=== PATIENT | female | born 1950 | race Caucasian/White ===

== ENCOUNTER 2018-07-19 07:51 | Observation (INO) | payer MEDICARE, OTHER ==
[2018-07-18 10:14] LABS: BASOPHILS % 0.3 % (0.0-1.0); EOSINOPHILS # (AUTO) 0.1 (0.0-0.4); EOSINOPHILS % 1.8 % (0.0-6.0); HEMOGLOBIN 12.8 g/dL (12.0-16.0); LYMPHOCYTES # (AUTO) 1.3 (1.0-3.2); LYMPHOCYTES % 21.3 % (18.0-39.1); MEAN CORPUSCULAR HEMOGLOBIN 29.8 pg (28-32); MEAN CORPUSCULAR HGB CONC 32.8 g/dL (31-35); MEAN CORPUSCULAR VOLUME 90.7 fL (81-99); MONOCYTES # (AUTO) 0.4 (0.2-0.8); NEUTROPHILS # (AUTO) 4.2 (2.1-6.9); NEUTROPHILS % 70.3 % (38.7-80.0); PLATELET COUNT 222 x10e3/uL (140-360); RED CELL DISTRIBUTION WIDTH 14.3 % (11.7-14.4)
--- NOTE | 2018-07-18 10:17 | Diagnostic Imaging Report ---
EXAMINATION: PA and lateral views of the chest. COMPARISON: None CLINICAL HISTORY: Preoperative study for cervical spine surgery DISCUSSION: Lines/tubes: None. Lungs: The lungs are well inflated and clear. There is no evidence of pneumonia or pulmonary edema. Pleura: There is no pleural effusion or pneumothorax. Heart and mediastinum: The cardiomediastinal silhouette is normal. Bones and soft tissues: No acute bony abnormalities. Degenerative changes in the thoracic spine IMPRESSION: No acute cardiopulmonary abnormalities. Signed by: Dr. Brendan Argueta M.D. on 07/18/2018 10:14 AM
[2018-07-18 10:20] LABS: INR 0.9; PROTHROMBIN TIME 12.6 seconds (11.9-14.5)
[2018-07-18 10:21] LABS: PARTIAL THROMBOPLASTIN TIME 28.5 seconds (23.8-35.5)
[2018-07-18 10:31] LABS: ANION GAP 11.5 mmol/L (8-16); CALCIUM 9.7 mg/dL (8.4-10.2); CREATININE, SERUM 1.48 mg/dL (0.57-1.11); POTASSIUM 3.5 mmol/L (3.5-5.1)
[~2018-07-19] VITALS: Ht 165.1 cm; Wt 83.1 kg
[~2018-07-19 07:51] MED LIST: ACETAMINOPHEN 1000 MG/100 ML 100 ML IV ONE; ALLOPURINOL300 MG PO; ASPIRIN81 MG PO; CALCIUM 500+D1 EACH PO; CYCLOBENZAPRINE10 MG PO; FLAXSEED OIL1000 MG PO; HYDROCHLOROTHIA25 MG PO; IRON PO; LEVOTHYROXINE50 MCG PO; LIDOCAINE HCL (LTA) 4 ML SOLN ONE; METHYLDOPA250 MG PO; OMEPRAZOLE40 MG PO; POTASSIUM CHLO10 ME1 PO; TRIAMCINOLONE A15 G1 TOP
--- OUTSIDE RECORDS SUMMARY | 2018-07-19 07:53 | XMS REPORT ---
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 Allergies, Adverse Reactions, Alerts This patient has no known allergies or adverse reactions. Medications This patient has no known medications. Results Test Description Test Time Test Comments Text Results Atomic Results Result Comments CHEST 2 VIEWS 2018-07-18 10:13:00 [place] [id number] Patient Name: LEISA IBRAHIM MR #: [id number] : 1950 Age/Sex: 67/F Req #: [id number] Adm Physician: Ordered by: MARTHA ELIAS MD Report #: [id number] Location: OR Room/Bed: Procedure: [id number] DX/CHEST 2 VIEWS Exam Date: 07/18/18 Exam Time: 0950 REPORT STATUS: Signed EXAMINATION: PA and lateral views of the chest. COMPAR [place]: None CLINICAL HISTORY: Preoperative study for cervical spine surgery DISCUSSION: Lines/tubes: None. Lungs: The lungs are well inflated and clear. There is no evidence of pneumonia or pulmonary edema. Pleura: There is no pleural effusion or pneumothorax. Heart and mediastinum: The cardiomediastinal silhouette is normal. Bones and soft tissues: No acute bony abnormalities. Degenerative changes in the thoracic spine IMPRESSION: No acute cardiopulmonary abnormalities. Signed by: Dr. Maryann Cross M.D. on 07/18/2018 10:14 AM Dictated By: MARYANN CROSS MD [id number] Transcribed By: MIGUEL on 07/18/18 1014 COPY TO: MARTHA ELIAS MD
--- OUTSIDE RECORDS SUMMARY | 2018-07-19 07:53 | XMS REPORT | Clinical Summary ---
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 Active Problems Not on file Encounters Care Team Description Date Type Specialty Amarilis Gonzalez RN 11/06/2017 Telephone Hospice Services Víctor Pradhan MD UTI (urinary tract infection), uncomplicated (Primary Dx) 09/21/2017 Emergency Emergency Medicine after 07/18/2017 Social History Date Tobacco Use Types Packs/Day Years Used Never Smoker Smokeless Tobacco: Never Used Alcohol Use Drinks/Week oz/Week Comments No Sex Assigned at Date Recorded Not on file Industry Job Start Date Occupation Not on file Not on file Not on file Travel End Travel History Travel Start No recent travel history available. Last Filed Vital Signs Time Taken Vital Sign Reading 09/21/2017 10:26 AM CDT Blood Pressure 118/65 09/21/2017 10:26 AM CDT Pulse 78 09/21/2017 10:26 AM CDT Temperature 36.8 C (98.2 F) 09/21/2017 10:26 AM CDT Respiratory Rate 21 09/21/2017 12:00 PM CDT Oxygen Saturation 98% - Inhaled Oxygen - Concentration 09/21/2017 10:27 AM CDT Weight 82.6 kg (182 lb) 09/21/2017 10:27 AM CDT Height 165.1 cm (5' 5") 09/21/2017 10:27 AM CDT Body Mass Index 30.29 Plan of Treatment Health Maintenance Due Date Last Done Comments BREAST CANCER SCREENING 2000 SHINGLES VACCINES (#1) 2000 65+ PNEUMOCOCCAL VACCINE 10/27/2015 (1 of 2 - PCV13) PNEUMOCOCCAL 10/27/2015 POLYSACCHARIDE VACCINE AGE 65 AND OVER INFLUENZA VACCINE 11/08/2018 01/27/2014, 01/23/2013, 01/08/2011 COLON CANCER SCREENING 09/22/2027 09/21/2017 Procedures Comments Procedure Name Priority Date/Time Associated Diagnosis CT ABDOMEN PELVIS WO STAT 09/21/2017 CONTRAST 12:10 PM CDT URINALYSIS SCREEN AND Routine 09/21/2017 MICROSCOPY, WITH REFLEX 11:20 AM CDT TO CULTURE GRAM STAIN Routine 09/21/2017 11:20 AM CDT URINE CULTURE Routine 09/21/2017 11:20 AM CDT OCCULT BLOOD, STOOL Routine 09/21/2017 11:20 AM CDT MANUAL DIFFERENTIAL STAT 09/21/2017 11:00 AM CDT ZZESTIMATED GFR STAT 09/21/2017 11:00 AM CDT LIPASE LEVEL STAT 09/21/2017 11:00 AM CDT PARTIAL THROMBOPLASTIN STAT 09/21/2017 TIME (PTT) 11:00 AM CDT PROTHROMBIN TIME WITH INR STAT 09/21/2017 11:00 AM CDT COMPREHENSIVE METABOLIC STAT 09/21/2017 PANEL 11:00 AM CDT CBC WITH PLATELET AND STAT 09/21/2017 DIFFERENTIAL 11:00 AM CDT after 07/18/2017 Results * CT Abdomen Pelvis Wo Contrast (09/21/2017 12:10 PM CDT) Narrative Performed At EXAMINATION:CT ABDOMEN PELVIS WO CONTRAST [facility]IANT CLINICAL HISTORY:66 years Female low abd pain black stool TECHNIQUE:Multiple axial images of the abdomen and pelvis were obtained without intravenous administration of iodinated contrast. Sagittal and coronal computerized reformatted images were also obtained. The lack of intravenous contrast reduces the sensitivity of detecting solid organ disease. CT imaging was performed with iterative reconstruction techniques and/or automated exposure control to reduce radiation dose. COMPARISON:None. FINDINGS: The liver and spleen appear normal in size and homogeneous in texture. Mild coronary artery calcification is noted The adrenal glands and pancreas appear within normal limits. The gallbladder has apparently been removed. The kidneys are not obstructed. No substantial calculi are noted within the collecting system of the kidneys. The ureters are not dilated The appendix does not appear grossly abnormal. It is diminutive with some opaque material although correlation with clinical findings is needed. A few small lymph nodes adjacent to the cecum under 1 cm are present of questionable significance. There is no evidence of diverticulitis. There are minimal diverticula . The bowel demonstrates no definitive inflammatory changes although there may be slight thickening of the wall of the descending colon this is questionable and probably related represents merely underdistention. Elsewhere there are no acute findings noted. The bones demonstrate degenerative changes and degenerative disc disease in the lower lumbar spine is also noted. The uterus and ovaries appear unremarkable to the limits of visualization. IMPRESSION: 1. There is mild coronary artery calcification. 2. Questionable mild thickening the wall of the colon transverse and descending colon although this is not definitive likely artifactual due to underdistention. 3. No changes to suggest diverticulitis.. [id number] Procedure Note Interface, Radiology Results [facility] - 09/21/2017 12:56 PM CDT EXAMINATION: CT ABDOMEN PELVIS WO CONTRAST CLINICAL HISTORY:66 years Female low abd pain black stool TECHNIQUE: Multiple axial images of the abdomen and pelvis were obtained without intravenous administration of iodinated contrast. Sagittal and coronal computerized reformatted images were also obtained. The lack of intravenous contrast reduces the sensitivity of detecting solid organ disease. CT imaging was performed with iterative reconstruction techniques and/or automated exposure control to reduce radiation dose. COMPARISON: None. FINDINGS: The liver and spleen appear normal in size and homogeneous in texture. Mild coronary artery calcification is noted The adrenal glands and pancreas appear within normal limits. The gallbladder has apparently been removed. The kidneys are not obstructed. No substantial calculi are noted within the collecting system of the kidneys. The ureters are not dilated The appendix does not appear grossly abnormal. It is diminutive with some opaque material although correlation with clinical findings is needed. A few small lymph nodes adjacent to the cecum under 1 cm are present of questionable significance. There is no evidence of diverticulitis. There are minimal diverticula . The bowel demonstrates no definitive inflammatory changes although there may be slight thickening of the wall of the descending colon this is questionable and probably related represents merely underdistention. Elsewhere there are no acute findings noted. The bones demonstrate degenerative changes and degenerative disc disease in the lower lumbar spine is also noted. The uterus and ovaries appear unremarkable to the limits of visualization. IMPRESSION: 1. There is mild coronary artery calcification. 2. Questionable mild thickening the wall of the colon transverse and descending colon although this is not definitive likely artifactual due to underdistention. 3. No changes to suggest diverticulitis.. [id number] Performing Organization Address City/State/Zipcode Phone Number [facility] [address] [place] [address] * Urinalysis screen and microscopy, with reflex to culture (09/21/2017 11:20 AM CDT) Specimen site Clean catch [facility] DEPARTMENT OF PATHOLOGY AND GENOMIC MEDICINE Color, UA Yellow [facility] DEPARTMENT OF PATHOLOGY AND GENOMIC MEDICINE Appearance, UA Slightly-Cloudy [facility] DEPARTMENT OF PATHOLOGY AND GENOMIC MEDICINE Specific gravity, UA 1.006 1.001 - 1.035 [facility] DEPARTMENT OF PATHOLOGY AND GENOMIC MEDICINE pH, UA 5.0 5.0 - 8.5 [facility] DEPARTMENT OF PATHOLOGY AND GENOMIC MEDICINE Protein, UA Negative Negative [facility] DEPARTMENT OF PATHOLOGY AND GENOMIC MEDICINE Glucose, UA Negative Negative [facility] DEPARTMENT OF PATHOLOGY AND GENOMIC MEDICINE Ketones, UA Trace (A) Negative [facility] DEPARTMENT OF PATHOLOGY AND GENOMIC MEDICINE Bilirubin, UA Negative Negative [facility] DEPARTMENT OF PATHOLOGY AND GENOMIC MEDICINE Blood, UA Small (A) Negative [facility] DEPARTMENT OF PATHOLOGY AND GENOMIC MEDICINE Nitrite, UA Negative Negative [facility] DEPARTMENT OF PATHOLOGY AND GENOMIC MEDICINE Urobilinogen, UA Negative <2.0 [facility] DEPARTMENT OF PATHOLOGY AND GENOMIC MEDICINE Leukocyte esterase, UA Large (A) Negative [facility] DEPARTMENT OF PATHOLOGY AND GENOMIC MEDICINE Epithelial cells, UA Many /HPF [facility] DEPARTMENT OF PATHOLOGY AND GENOMIC MEDICINE Round epithelial cells, Many 0 - 1 /HPF [facility] DEPARTMENT [facility] PATHOLOGY AND GENOMIC MEDICINE WBC, UA 0-5 0 - 4 /HPF [facility] DEPARTMENT OF PATHOLOGY AND GENOMIC MEDICINE RBC, UA 0-5 0 - 5 /HPF [facility] DEPARTMENT OF PATHOLOGY AND GENOMIC MEDICINE Bacteria, UA Trace None seen [facility] DEPARTMENT OF PATHOLOGY AND GENOMIC MEDICINE Yeast, UA None seen [facility] DEPARTMENT OF PATHOLOGY AND GENOMIC MEDICINE Yeast with pseudohyphae, None seen [facility] PATHOLOGY AND GENOMIC MEDICINE Hyaline casts, UA 6-10 /LPF [facility] DEPARTMENT OF PATHOLOGY AND GENOMIC MEDICINE Specimen Urine Performing Organization Address City/[facility] Phone Number [facility] [address]MENT [place] [id number] [place] [address] [place] [address] PATHOLOGY AND GENOMIC MEDICINE * Occult blood, stool (09/21/2017 11:20 AM CDT) Occult blood, stool Negative for occult blood. [facility] DEPARTMENT OF Comment: PATHOLOGY AND Specimen Information GENOMIC MEDICINE Specimen Source: Stool Specimen Site: Not otherwise specified Specimen Stool - Not otherwise specified Performing Organization Address City/[facility]/Zipcode Phone Number [facility] [address]MENT [place] [id number] [place] [address] [place] [address] PATHOLOGY AND GENOMIC MEDICINE * Gram stain (09/21/2017 11:20 AM CDT) Gram stain result No WBC's [facility] DEPARTMENT OF Occasional Gram positive rods PATHOLOGY AND Comment: GENOMIC MEDICINE Specimen Information Specimen Source: Urine Specimen Site: Clean catch Specimen Urine Performing Organization Address City/[facility]/Zipcode Phone Number [facility] DEPARTMENT OF [address] [place] [id number] PATHOLOGY AND GENOMIC MEDICINE * Urine culture (09/21/2017 11:20 AM CDT) Urine culture isolate Klebsiella pneumoniae [facility] DEPARTMENT OF >10-5 cfu/ml PATHOLOGY AND The performance GENOMIC MEDICINE characteristics of this assay on this isolate were validated by the Microbiology Laboratory at [facility].This source has not been approved by the U.S. Food and Drug Administration.The results are not intended to be used as the sole means for clinical diagnosis or patient management.The Microbiology Laboratory is authorized under the clinical Laboratory Improvement Amendments of 1988 (CLIA-88) to perform high complexity testing. (A) Comment: Specimen Information Specimen Source: Urine Specimen Site: Clean catch Urine culture isolate Salmonella enteritidis [facility] DEPARTMENT OF >10-5 cfu/ml PATHOLOGY AND Serotyping performed by the [facility], [address] [place] [address] This organism has been reported to the [facility] as required, [address], [place] [address]. The performance characteristics of this assay on this isolate were validated by the Microbiology Laboratory at [facility].This source has not been approved by the .S. Food and Drug Administration.The results are not intended to be used as the sole means for clinical diagnosis or patient management.The Microbiology Laboratory is authorized under the clinical Laboratory Improvement Amendments of 1988 (CLIA-88) to perform high complexity testing. This organism has been reported to the [facility] as required, [address], [place] [address]. Identification performed by the [facility], [address] [place] [address] This Salmonella molecular serotyping assay was developed by [facility], and its performance characteristics determined by the [facility].It has not been cleared or approved by the U.S. Food and Drug Administration (FDA).The test results serve only as an aid for epidemiological surveillance purposes and are not to be used for diagnosis or treatment. (A) Urine culture isolate Mixed Gram positive floridalma [facility] DEPARTMENT OF >10-5 cfu/ml PATHOLOGY AND (A) [facility] Specimen Urine Antibiotic Method Susceptibility Organism Ampicillin PANDA >16 mcg/mL: Resistant Klebsiella pneumoniae Amoxicillin/Clavulanate PANDA <=2/1 mcg/mL: Susceptible Klebsiella pneumoniae Amikacin PANDA <=4 mcg/mL: Susceptible Klebsiella pneumoniae Aztreonam PANDA <=1 mcg/mL: Susceptible Klebsiella pneumoniae Ceftazidime PANDA <=0.5 mcg/mL: Susceptible Klebsiella pneumoniae Ciprofloxacin PANDA <=0.5 mcg/mL: Susceptible Klebsiella pneumoniae Ceftriaxone PANDA <=0.5 mcg/mL: Susceptible Klebsiella pneumoniae Cefuroxime Sodium PANDA <=4 mcg/mL: Susceptible Klebsiella pneumoniae Cefazolin PANDA <=1 mcg/mL: Susceptible Klebsiella pneumoniae Cefepime PANDA <=0.5 mcg/mL: Susceptible Klebsiella pneumoniae Nitrofurantoin PANDA 64 mcg/mL: Resistant Klebsiella pneumoniae Cefoxitin PANDA <=4 mcg/mL: Susceptible Klebsiella pneumoniae Gentamicin PANDA 1 mcg/mL: Susceptible Klebsiella pneumoniae Imipenem PANDA 0.5 mcg/mL: Susceptible Klebsiella pneumoniae Levofloxacin PANDA <=1 mcg/mL: Susceptible Klebsiella pneumoniae Meropenem PANDA <=0.125 mcg/mL: Susceptible Klebsiella pneumoniae Tobramycin PANDA <=0.5 mcg/mL: Susceptible Klebsiella pneumoniae Ampicillin/Sulbactam PANDA 8/4 mcg/mL: Susceptible Klebsiella pneumoniae Trimethoprim/Sulfamethoxazole PANDA <=0.5/9.5 mcg/mL: Susceptible Klebsiella pneumoniae Tetracycline PANDA <=1 mcg/mL: Susceptible Klebsiella pneumoniae Piperacillin/Tazobactam PANDA 4/4 mcg/mL: Susceptible Klebsiella pneumoniae Ertapenem PANDA <=0.125 mcg/mL: Susceptible Klebsiella pneumoniae Tigecycline PANDA <=0.5 mcg/mL: Susceptible Klebsiella pneumoniae Ampicillin PANDA <=2 mcg/mL: Susceptible Salmonella enteritidis Ceftriaxone PANDA <=0.5 mcg/mL: Susceptible Salmonella enteritidis Levofloxacin PANDA <=1 mcg/mL: Susceptible Salmonella enteritidis Meropenem PANDA <=0.125 mcg/mL: Susceptible Salmonella enteritidis Trimethoprim/Sulfamethoxazole PANDA <=0.5/9.5 mcg/mL: Susceptible Salmonella enteritidis Tigecycline PANDA <=0.5 mcg/mL: Susceptible Salmonella enteritidis Performing Organization Address [facility] Centercode Phone Number [facility] DEPARTMENT OF [address] [place] [address] PATHOLOGY AND GENOMIC MEDICINE * Estimated GFR (09/21/2017 11:00 AM CDT) GFR Non Af Amer 41 (A) mL/min/1.73 m2 [facility] DEPARTMENT OF PATHOLOGY AND GENOMIC MEDICINE GFR Af Amer 50 (A) mL/min/1.73 m2 [facility] DEPARTMENT OF Comment: PATHOLOGY AND Chronic kidney disease: <60 GENOMIC MEDICINE mL/min/1.73m2 Kidney failure: <15 mL/min/1.73m2 The estimated GFR is calculated from the IDMS-traceable Modification of Diet in Renal Disease Equation. The accuracy of the calculation is poor when the creatinine is normal. Calculated values >90 mL/min/1.73m2 are not reported. This equation has not been validated in children (<18 years), women, the elderly (>70 years), or ethnic groups other than Caucasians and Americans. Specimen Plasma specimen Performing Organization Address City/State/Zipcode Phone Number [facility] [place] [address] [place] [address] PATHOLOGY AND GENOMIC MEDICINE * Manual differential (09/21/2017 11:00 AM CDT) Manual differential PERFORMED [facility] DEPARTMENT OF PATHOLOGY AND GENOMIC MEDICINE Neutrophils 61.0 39.0 - 69.0 % [facility] DEPARTMENT OF PATHOLOGY AND GENOMIC MEDICINE Lymphocytes 27.0 25.0 - 45.0 % [facility] DEPARTMENT OF PATHOLOGY AND GENOMIC MEDICINE Monocytes 8.0 0.0 - 10.0 % [facility] DEPARTMENT OF PATHOLOGY AND GENOMIC MEDICINE Eosinophils 4.0 0.0 - 5.0 % [facility] DEPARTMENT OF PATHOLOGY AND GENOMIC MEDICINE Basophils 0.0 0.0 - 1.0 % [facility] DEPARTMENT OF PATHOLOGY AND GENOMIC MEDICINE Metamyelocytes 0 % [facility] DEPARTMENT OF PATHOLOGY AND GENOMIC MEDICINE Promyelocytes 0 % [facility] DEPARTMENT OF PATHOLOGY AND GENOMIC MEDICINE Platelet slide review Shaniqua adequate [facility] DEPARTMENT OF PATHOLOGY AND GENOMIC MEDICINE Anisocytosis OCCASIONAL [facility] DEPARTMENT OF PATHOLOGY AND GENOMIC MEDICINE Performing Organization Address [facility] Centercout Phone Number [address] [place] [address] PATHOLOGY AND GENOMIC MEDICINE * Partial thromboplastin time, activated (09/21/2017 11:00 AM CDT) PTT 25.3 23.0 - 36.0 sec [facility] DEPARTMENT OF Comment: PATHOLOGY AND PTT therapeutic range for GENOMIC MEDICINE unfractionated heparin is 61.0-112.0 seconds which corresponds to Anti-Xa 0.3-0.7 U/ml. Specimen Blood Performing Organization Address [facility] Phone Number [address] [place] [address] PATHOLOGY AND GENOMIC MEDICINE * Prothrombin time with INR (09/21/2017 11:00 AM CDT) Prothrombin time 12.4 12.0 - 15.0 sec [facility] DEPARTMENT OF PATHOLOGY AND GENOMIC MEDICINE INR 0.9 [facility] DEPARTMENT OF Comment: PATHOLOGY AND The International Normalized GENOMIC MEDICINE Ratio (INR) is a therapeutic monitoring tool for patients who are stable on oral anticoagulant therapy. An INR of 2.0-3.0 is suggested for deep vein thrombosis/pulmonary embolism. Specimen Blood Performing Organization Address [facility] Centercout Phone Number [address] [place] [address] PATHOLOGY AND GENOMIC MEDICINE * CBC with platelet and differential (09/21/2017 11:00 AM CDT) WBC 5.38 4.50 - 11.00 k/uL [facility] DEPARTMENT OF PATHOLOGY AND GENOMIC MEDICINE RBC 3.97 (L) 4.20 - 5.50 m/uL [facility] DEPARTMENT OF PATHOLOGY AND GENOMIC MEDICINE HGB 11.6 (L) 12.0 - 16.0 g/dL [facility] DEPARTMENT OF PATHOLOGY AND GENOMIC MEDICINE HCT 34.6 (L) 37.0 - 47.0 % [facility] DEPARTMENT OF PATHOLOGY AND GENOMIC MEDICINE MCV 87.2 82.0 - 100.0 fL [facility] DEPARTMENT OF PATHOLOGY AND GENOMIC MEDICINE MCH 29.2 27.0 - 34.0 pg [facility] DEPARTMENT OF PATHOLOGY AND GENOMIC MEDICINE MCHC 33.5 31.0 - 37.0 g/dL [facility] DEPARTMENT OF PATHOLOGY AND GENOMIC MEDICINE RDW - SD 44.7 37.0 - 55.0 fL [facility] DEPARTMENT OF PATHOLOGY AND GENOMIC MEDICINE MPV 9.6 8.8 - 13.2 fL [facility] DEPARTMENT OF PATHOLOGY AND GENOMIC MEDICINE Platelet count 245 150 - 400 k/uL [facility] DEPARTMENT OF PATHOLOGY AND GENOMIC MEDICINE Nucleated RBC 0.00 /100 WBC [facility] DEPARTMENT OF PATHOLOGY AND GENOMIC MEDICINE Neutrophils 61.0 39.0 - 69.0 % [facility] DEPARTMENT OF PATHOLOGY AND GENOMIC MEDICINE Lymphocytes 27.0 25.0 - 45.0 % [facility] DEPARTMENT OF PATHOLOGY AND GENOMIC MEDICINE Monocytes 8.0 0.0 - 10.0 % [facility] DEPARTMENT OF PATHOLOGY AND GENOMIC MEDICINE Eosinophils 4.0 0.0 - 5.0 % [facility] DEPARTMENT OF PATHOLOGY AND GENOMIC MEDICINE Basophils 0.0 0.0 - 1.0 % [facility] DEPARTMENT OF PATHOLOGY AND GENOMIC MEDICINE Specimen Blood Performing Organization Address [facility] Centercout Phone Number [address] [place] [address] PATHOLOGY AND GENOMIC MEDICINE * Lipase level (09/21/2017 11:00 AM CDT) Lipase 70 (H) 13 - 60 U/L [facility] DEPARTMENT OF PATHOLOGY AND GENOMIC MEDICINE Specimen Plasma specimen Performing Organization Address [facility] Centercout Phone Number [address] [place] [address] PATHOLOGY AND GENOMIC MEDICINE * Comprehensive metabolic panel (09/21/2017 11:00 AM CDT) Sodium 130 (L) 135 - 148 mEq/L [facility] DEPARTMENT OF PATHOLOGY AND GENOMIC MEDICINE Potassium 3.8 3.5 - 5.0 mEq/L [facility] DEPARTMENT OF PATHOLOGY AND GENOMIC MEDICINE Chloride 93 (L) 98 - 112 mEq/L [facility] DEPARTMENT OF PATHOLOGY AND GENOMIC MEDICINE CO2 24 24 - 31 mEq/L [facility] DEPARTMENT OF PATHOLOGY AND GENOMIC MEDICINE Anion gap 13@ANIO 7 - 15 mEq/L [facility] DEPARTMENT OF PATHOLOGY AND GENOMIC MEDICINE BUN 10 8 - 23 mg/dL [facility] DEPARTMENT OF PATHOLOGY AND GENOMIC MEDICINE Creatinine 1.3 (H) 0.5 - 0.9 mg/dL [facility] DEPARTMENT OF PATHOLOGY AND GENOMIC MEDICINE Glucose 132 (H) 65 - 99 mg/dL [facility] DEPARTMENT OF PATHOLOGY AND GENOMIC MEDICINE Calcium 8.9 8.8 - 10.2 mg/dL [facility] DEPARTMENT OF PATHOLOGY AND GENOMIC MEDICINE Protein 6.9 6.3 - 8.3 g/dL [facility] DEPARTMENT OF Comment: PATHOLOGY AND [place] GENOMIC MEDICINE 4.6-7.0 g/dL 1 week 4.4-7.6 g/dL 7 months-1year 5.1-7.3 g/dL 1-2 years5.6-7 .5 g/dL >3 years6.0-8 .0 g/dL 18-150 6.3-8.3 g/dL Albumin 4.1 3.5 - 5.0 g/dL [facility] DEPARTMENT OF PATHOLOGY AND GENOMIC MEDICINE A/G ratio 1.5 0.7 - 3.8 [facility] DEPARTMENT OF PATHOLOGY AND GENOMIC MEDICINE Alkaline phosphatase 55 35 - 104 U/L [facility] DEPARTMENT OF PATHOLOGY AND GENOMIC MEDICINE AST 16 10 - 35 U/L [facility] DEPARTMENT OF PATHOLOGY AND GENOMIC MEDICINE ALT 10 5 - 50 U/L [facility] [facility] DEPARTMENT OF PATHOLOGY AND GENOMIC MEDICINE Total bilirubin 0.3 0.0 - 1.2 mg/dL [facility] DEPARTMENT OF PATHOLOGY AND GENOMIC MEDICINE Specimen Plasma specimen Performing Organization Address City/State/Zipcode Phone Number [facility] [address] [place] [address] PATHOLOGY AND GENOMIC MEDICINE after 07/18/2017 Insurance Payer Benefit Subscriber ID Type Phone Address Plan / Group MEDICARE MEDICARE xxxxxxxxxx Medicare [place], [place] PART A AND B [employer] xxxxxxxxxx Commercial L [employer] [place] Advance Directives Patient has advance care planning documents on file. For more information, tank e contact: Fidencio Crane [address] [place] [address]
[2018-07-19] MEDS ORDERED: CEFAZOLIN SOD 2 GM/D5W 50ML 50 ML IV ONE (08:09)
[2018-07-19] MEDS ORDERED: THROMBIN FOR SOLN 5,000 UNIT VIAL ONE (08:22)
[2018-07-19] MEDS ORDERED: GELATIN SPONGE 12-7MM ONE (08:22)
[2018-07-19] MEDS ORDERED: BACITRACIN 50,000 UNIT VIAL ONE (08:22)
[2018-07-19] MEDS ORDERED: BUPIVACAINE 0.5%/EPI 30 ML SDV INJ ONE (08:22)
[2018-07-19] MEDS ORDERED: SCOPOLAMINE 1.5 MG PATCH ONE (09:19)
[2018-07-19] MEDS ORDERED: ACETAMINOPHEN 325 MG TAB PO PRN (11:45)
[2018-07-19] MEDS ORDERED: CYCLOBENZAPRINE HCL 10 MG TAB PO PRN (11:45)
[2018-07-19] MEDS ORDERED: MAGNESIUM/ALUMINUM/SIMETHICONE 30 ML UDC PO PRN (11:45)
[2018-07-19] MEDS ORDERED: MORPHINE SULFATE 5 MG/ML VIAL IM PRN (11:45)
[2018-07-19] MEDS ORDERED: CARISOPRODOL 350 MG TAB PO PRN (11:45)
[2018-07-19] MEDS ORDERED: HYDROMORPHONE 2MG/ML 2 MG/ML ML IV PRN (11:45)
[2018-07-19] MEDS ORDERED: OXYCODONE/ACETAMINOPHEN 5-325 1 EACH TABLET PO PRN (11:45)
[2018-07-19] MEDS ORDERED: CEPACOL SORE THROAT LOZENGES PO PRN (11:45)
[2018-07-19] MEDS ORDERED: PROMETHAZINE HCL (IM) 25 MG/ML VIAL IM PRN (11:45)
[2018-07-19] MEDS ORDERED: TRIAMCINOLONE ACET 0.1% CREAM 15 GM TUBE TOP SCH (11:45)
[2018-07-19] MEDS ORDERED: ONDANSETRON HCL INJ 2MG/ML 2ML 2 MG/ML VIAL IV PRN (11:45)
--- OUTSIDE RECORDS SUMMARY | 2018-07-19 12:10 | XMS REPORT | Clinical Summary ---
Author Author [facility] Address Unknown Phone Unavailable Care Team Providers Care Dehydrogenation Supervisor Name Role Phone Abbey Jeronimo MD PCP [...] underdistention. 3. No changes to suggest diverticulitis.. [id number] Procedure Note Interface, Radiology Results [facility] - 09/21/2017 12:56 PM CDT EXAMINATION: CT [...] underdistention. 3. No changes to suggest diverticulitis.. [id number] Performing Organization Address City/State/Zipcode Phone Number [facility] [address] [place] [address] * Urinalysis screen and microscopy, with reflex to culture (09/21/2017 11:20 AM CDT) Specimen site Clean catch [facility] DEPARTMENT OF PATHOLOGY AND GENOMIC MEDICINE Color, UA Yellow [facility] DEPARTMENT OF PATHOLOGY AND GENOMIC MEDICINE Appearance, UA Slightly-Cloudy [facility] DEPARTMENT OF PATHOLOGY AND GENOMIC MEDICINE Specific gravity, UA 1.006 1.001 - 1.035 [facility] DEPARTMENT OF PATHOLOGY AND GENOMIC MEDICINE pH, UA 5.0 5.0 - 8.5 [facility] DEPARTMENT OF PATHOLOGY AND GENOMIC MEDICINE Protein, UA Negative Negative [facility] DEPARTMENT OF PATHOLOGY AND GENOMIC MEDICINE Glucose, UA Negative Negative [facility] DEPARTMENT OF PATHOLOGY AND GENOMIC MEDICINE Ketones, UA Trace (A) Negative [facility] DEPARTMENT OF PATHOLOGY AND GENOMIC MEDICINE Bilirubin, UA Negative Negative [facility] DEPARTMENT OF PATHOLOGY AND GENOMIC MEDICINE Blood, UA Small (A) Negative [facility] DEPARTMENT OF PATHOLOGY AND GENOMIC MEDICINE Nitrite, UA Negative Negative [facility] DEPARTMENT OF PATHOLOGY AND GENOMIC MEDICINE Urobilinogen, UA Negative <2.0 [facility] DEPARTMENT OF PATHOLOGY AND GENOMIC MEDICINE Leukocyte esterase, UA Large (A) Negative [facility] DEPARTMENT OF PATHOLOGY AND GENOMIC MEDICINE Epithelial cells, UA Many /HPF [facility] DEPARTMENT OF PATHOLOGY AND GENOMIC MEDICINE Round epithelial cells, Many 0 - 1 /HPF [facility] DEPARTMENT [facility] PATHOLOGY AND GENOMIC MEDICINE WBC, UA 0-5 0 - 4 /HPF [facility] DEPARTMENT OF PATHOLOGY AND GENOMIC MEDICINE RBC, UA 0-5 0 - 5 /HPF [facility] DEPARTMENT OF PATHOLOGY AND GENOMIC MEDICINE Bacteria, UA Trace None seen [facility] DEPARTMENT OF PATHOLOGY AND GENOMIC MEDICINE Yeast, UA None seen [facility] DEPARTMENT OF PATHOLOGY AND GENOMIC MEDICINE Yeast with pseudohyphae, None seen [facility] PATHOLOGY AND GENOMIC MEDICINE Hyaline casts, UA 6-10 /LPF [facility] DEPARTMENT OF PATHOLOGY AND GENOMIC MEDICINE Specimen Urine Performing Organization Address City/[facility] Phone Number [facility] [place] [id number] [place] [address] [place] [address] PATHOLOGY AND GENOMIC MEDICINE * Occult blood, stool (09/21/2017 11:20 AM CDT) Occult blood, stool Negative for occult blood. [facility] DEPARTMENT OF Comment: PATHOLOGY AND Specimen Information GENOMIC MEDICINE Specimen Source: Stool Specimen Site: Not otherwise specified Specimen Stool - Not otherwise specified Performing Organization Address City/[facility]/Zipcode Phone Number [facility] [place] [id number] [place] [address] [place] [address] PATHOLOGY AND GENOMIC MEDICINE * Gram stain (09/21/2017 11:20 AM CDT) Gram stain result No WBC's [facility] DEPARTMENT OF Occasional Gram positive rods PATHOLOGY AND Comment: GENOMIC MEDICINE Specimen Information Specimen Source: Urine Specimen Site: Clean catch Specimen Urine Performing Organization Address City/[facility]/Zipcode Phone Number [facility] DEPARTMENT OF [address] [place] [phone] PATHOLOGY AND GENOMIC MEDICINE * Urine culture (09/21/2017 11:20 AM CDT) Urine culture isolate Klebsiella pneumoniae [facility] DEPARTMENT OF >10-5 cfu/ml PATHOLOGY AND The performance GENOMIC MEDICINE characteristics of this assay on this isolate were validated by the Microbiology Laboratory at [facility].This source has not been approved by the U.S. Food and Drug Administration.The results are not intended to be used as the sole means for clinical diagnosis or patient management.The Microbiology Laboratory is authorized under the clinical Laboratory Improvement Amendments of 1988 (CLIA-88) to perform high complexity testing. (A) Comment: Specimen Information Specimen Source: Urine Specimen Site: Clean catch Urine culture isolate Salmonella enteritidis [facility] DEPARTMENT OF >10-5 cfu/ml PATHOLOGY AND Serotyping performed by the [facility] MEDICINE Formerly [facility], [address] [place] [address] This organism has been reported to the [facility] as required, [address], [place] [address]. The performance characteristics of this assay on this isolate were validated by the Microbiology Laboratory at [facility].This source has not been approved by the .S. Food and Drug Administration.The results are not intended to be used as the sole means for clinical diagnosis or patient management.The Microbiology Laboratory is authorized under the clinical Laboratory Improvement Amendments of 1988 (CLIA-88) to perform high complexity testing. This organism has been reported to the [facility] as required, [address] [facility], [place] [address]. Identification performed by the [facility], [address] [place] [address] This Salmonella molecular serotyping assay was developed by [facility], and its performance characteristics determined by the [facility].It has not been cleared or approved by the U.S. Food and Drug Administration (FDA).The test results serve only as an aid for epidemiological surveillance purposes and are not to be used for diagnosis or treatment. (A) Urine culture isolate Mixed Gram positive floridalma [facility] DEPARTMENT OF >10-5 cfu/ml PATHOLOGY AND (A) [facility] Specimen Urine Antibiotic Method Susceptibility Organism Ampicillin [...] mcg/mL: Susceptible Salmonella enteritidis Performing Organization Address [facility] Phone Number [facility] DEPARTMENT OF [address] [place] [address] PATHOLOGY AND GENOMIC MEDICINE * Estimated GFR (09/21/2017 11:00 AM CDT) GFR Non Af Amer 41 (A) mL/min/1.73 m2 [facility] DEPARTMENT OF PATHOLOGY AND GENOMIC MEDICINE GFR Af Amer 50 (A) mL/min/1.73 m2 [facility] DEPARTMENT OF Comment: PATHOLOGY AND Chronic kidney [...] specimen Performing Organization Address City/State/Zipcode Phone Number [facility] [place] [place] [address] [place] [address] PATHOLOGY AND GENOMIC MEDICINE * Manual differential (09/21/2017 11:00 AM CDT) Manual differential PERFORMED [facility] DEPARTMENT OF PATHOLOGY AND GENOMIC MEDICINE Neutrophils 61.0 39.0 - 69.0 % [facility] DEPARTMENT OF PATHOLOGY AND GENOMIC MEDICINE Lymphocytes 27.0 25.0 - 45.0 % [facility] DEPARTMENT OF PATHOLOGY AND GENOMIC MEDICINE Monocytes 8.0 0.0 - 10.0 % [facility] DEPARTMENT OF PATHOLOGY AND GENOMIC MEDICINE Eosinophils 4.0 0.0 - 5.0 % [facility] DEPARTMENT OF PATHOLOGY AND GENOMIC MEDICINE Basophils 0.0 0.0 - 1.0 % [facility] DEPARTMENT OF PATHOLOGY AND GENOMIC MEDICINE Metamyelocytes 0 % [facility] DEPARTMENT OF PATHOLOGY AND GENOMIC MEDICINE Promyelocytes 0 % [facility] DEPARTMENT OF PATHOLOGY AND GENOMIC MEDICINE Platelet slide review Shaniqua adequate [facility] DEPARTMENT OF PATHOLOGY AND GENOMIC MEDICINE Anisocytosis OCCASIONAL [facility] DEPARTMENT OF PATHOLOGY AND GENOMIC MEDICINE Performing Organization Address [facility] Phone Number [address] [place] [address] PATHOLOGY AND GENOMIC MEDICINE * Partial thromboplastin time, activated (09/21/2017 11:00 AM CDT) PTT 25.3 23.0 - 36.0 sec [facility] DEPARTMENT OF Comment: PATHOLOGY AND PTT therapeutic range for GENOMIC MEDICINE unfractionated heparin is 61.0-112.0 seconds which corresponds to Anti-Xa 0.3-0.7 U/ml. Specimen Blood Performing Organization Address [facility] Phone Number [address] [place] [address] PATHOLOGY AND GENOMIC MEDICINE * Prothrombin time with INR (09/21/2017 11:00 AM CDT) Prothrombin time 12.4 12.0 - 15.0 sec [facility] DEPARTMENT OF PATHOLOGY AND GENOMIC MEDICINE INR 0.9 [facility] DEPARTMENT OF Comment: PATHOLOGY AND The International Normalized GENOMIC MEDICINE Ratio (INR) is a therapeutic monitoring tool for patients who are stable on oral anticoagulant therapy. An INR of 2.0-3.0 is suggested for deep vein thrombosis/pulmonary embolism. Specimen Blood Performing Organization Address [facility] Phone Number [address] [place] [address] PATHOLOGY AND GENOMIC MEDICINE * CBC with platelet and differential (09/21/2017 11:00 AM CDT) WBC 5.38 4.50 - 11.00 k/uL [facility] DEPARTMENT OF PATHOLOGY AND GENOMIC MEDICINE RBC 3.97 (L) 4.20 - 5.50 m/uL [facility] DEPARTMENT OF PATHOLOGY AND GENOMIC MEDICINE HGB 11.6 (L) 12.0 - 16.0 g/dL [facility] DEPARTMENT OF PATHOLOGY AND GENOMIC MEDICINE HCT 34.6 (L) 37.0 - 47.0 % [facility] DEPARTMENT OF PATHOLOGY AND GENOMIC MEDICINE MCV 87.2 82.0 - 100.0 fL [facility] DEPARTMENT OF PATHOLOGY AND GENOMIC MEDICINE MCH 29.2 27.0 - 34.0 pg [facility] DEPARTMENT OF PATHOLOGY AND GENOMIC MEDICINE MCHC 33.5 31.0 - 37.0 g/dL [facility] DEPARTMENT OF PATHOLOGY AND GENOMIC MEDICINE RDW - SD 44.7 37.0 - 55.0 fL [facility] DEPARTMENT OF PATHOLOGY AND GENOMIC MEDICINE MPV 9.6 8.8 - 13.2 fL [facility] DEPARTMENT OF PATHOLOGY AND GENOMIC MEDICINE Platelet count 245 150 - 400 k/uL [facility] DEPARTMENT OF PATHOLOGY AND GENOMIC MEDICINE Nucleated RBC 0.00 /100 WBC [facility] DEPARTMENT OF PATHOLOGY AND GENOMIC MEDICINE Neutrophils 61.0 39.0 - 69.0 % [facility] DEPARTMENT OF PATHOLOGY AND GENOMIC MEDICINE Lymphocytes 27.0 25.0 - 45.0 % [facility] DEPARTMENT OF PATHOLOGY AND GENOMIC MEDICINE Monocytes 8.0 0.0 - 10.0 % [facility] DEPARTMENT OF PATHOLOGY AND GENOMIC MEDICINE Eosinophils 4.0 0.0 - 5.0 % [facility] DEPARTMENT OF PATHOLOGY AND GENOMIC MEDICINE Basophils 0.0 0.0 - 1.0 % [facility] DEPARTMENT OF PATHOLOGY AND GENOMIC MEDICINE Specimen Blood Performing Organization Address [facility] Phone Number [address] [place] [address] PATHOLOGY AND GENOMIC MEDICINE * Lipase level (09/21/2017 11:00 AM CDT) Lipase 70 (H) 13 - 60 U/L [facility] DEPARTMENT OF PATHOLOGY AND GENOMIC MEDICINE Specimen Plasma specimen Performing Organization Address [facility] Phone Number [address] [place] [address] PATHOLOGY AND GENOMIC MEDICINE * Comprehensive metabolic panel (09/21/2017 11:00 AM CDT) Sodium 130 (L) 135 - 148 mEq/L [facility] DEPARTMENT OF PATHOLOGY AND GENOMIC MEDICINE Potassium 3.8 3.5 - 5.0 mEq/L [facility] DEPARTMENT OF PATHOLOGY AND GENOMIC MEDICINE Chloride 93 (L) 98 - 112 mEq/L [facility] DEPARTMENT OF PATHOLOGY AND GENOMIC MEDICINE CO2 24 24 - 31 mEq/L [facility] DEPARTMENT OF PATHOLOGY AND GENOMIC MEDICINE Anion gap 13@ANIO 7 - 15 mEq/L [facility] DEPARTMENT OF PATHOLOGY AND GENOMIC MEDICINE BUN 10 8 - 23 mg/dL [facility] DEPARTMENT OF PATHOLOGY AND GENOMIC MEDICINE Creatinine 1.3 (H) 0.5 - 0.9 mg/dL [facility] DEPARTMENT OF PATHOLOGY AND GENOMIC MEDICINE Glucose 132 (H) 65 - 99 mg/dL [facility] DEPARTMENT OF PATHOLOGY AND GENOMIC MEDICINE Calcium 8.9 8.8 - 10.2 mg/dL [facility] DEPARTMENT OF PATHOLOGY AND GENOMIC MEDICINE Protein 6.9 6.3 - 8.3 g/dL [facility] DEPARTMENT OF Comment: PATHOLOGY AND [place] GENOMIC MEDICINE 4.6-7.0 g/dL 1 week 4.4-7.6 g/dL 7 months-1year 5.1-7.3 g/dL 1-2 years5.6-7 .5 g/dL >3 years6.0-8 .0 g/dL 18-150 6.3-8.3 g/dL Albumin 4.1 3.5 - 5.0 g/dL [facility] DEPARTMENT OF PATHOLOGY AND GENOMIC MEDICINE A/G ratio 1.5 0.7 - 3.8 [facility] DEPARTMENT OF PATHOLOGY AND GENOMIC MEDICINE Alkaline phosphatase 55 35 - 104 U/L [facility] DEPARTMENT OF PATHOLOGY AND GENOMIC MEDICINE AST 16 10 - 35 U/L [facility] DEPARTMENT OF PATHOLOGY AND GENOMIC MEDICINE ALT 10 5 - 50 U/L [facility] DEPARTMENT OF PATHOLOGY AND GENOMIC MEDICINE Total bilirubin 0.3 0.0 - 1.2 mg/dL [facility] DEPARTMENT OF PATHOLOGY AND GENOMIC MEDICINE Specimen Plasma specimen Performing Organization Address City/State/Zipcode Phone Number [facility] [address] [place] [address] PATHOLOGY AND GENOMIC MEDICINE after 07/18/2017 Insurance Payer Benefit Subscriber ID Type Phone Address Plan / Group MEDICARE MEDICARE xxxxxxxxxx Medicare [place], [place] PART A AND B [employer] xxxxxxxxxx Commercial L [employer] [place] Advance Directives Patient has advance care planning documents on file. For more information, tank e contact: Fidencio Crane [address] [place] [address]
[2018-07-19 13:18] VITALS: BP 175/80
[2018-07-19 13:19] VITALS: BP 175/80
[2018-07-19 13:24] VITALS: BP 175/80
--- NOTE | 2018-07-19 13:38 | NUR ---
patient received from OR via stretcher. soft collar in place with dry and intact island dressing in place. family at BS. mild complaint of pain but does not want meds at this time. teds and scd's in place.
[2018-07-19] MEDS: HOME MEDICATION--PATIENTS OWN PO SCH ×2 (13:43→22:00)
[2018-07-19] MEDS: CEFAZOLIN SOD 1 GM/NS 50ML 50 ML IV SCH ×2 (13:47→22:21)
[2018-07-19] MEDS: LACTATED RINGER'S 1,000 ML IV SCH ×2 (13:47→19:55)
--- NOTE | 2018-07-19 16:32 | Operative Report ---
DATE OF PROCEDURE: 07/19/2018 SURGEON: Alfred Garcia MD PREOPERATIVE DIAGNOSIS: C6-7 spondylosis with radiculopathy, M50.123. POSTOPERATIVE DIAGNOSIS: C6-7 spondylosis with radiculopathy, M50.123. PROCEDURES: 1. C6-7 anterior cervical diskectomy and microsurgical osteophyte resection and allograft fusion, [address]. 2. Preparation of MTF corticocancellous allograft, 52845. 3. C6-7 anterior cervical plating with Synthes ZPN plate, 98849. ANESTHESIA: General. INDICATIONS: The patient is a 67-year-old woman, who presents with C6-7 spondylosis and bilateral foraminal stenosis with right-sided cervical radiculopathy. She was taken to the operating room for anterior cervical decompression and fusion of this segment, which is below the level of the previous noninstrumented C5-6 fusion. PROCEDURE IN DETAIL: After induction of general anesthesia, the patient was placed on the operating table in supine position and the right side of the neck was prepped and draped in sterile fashion. The fluoroscopic C-arm was positioned in cross-table lateral orientation. A small transverse incision was created on right side of the neck continuous with her previous thyroidectomy scar. The platysma was divided in line with the incision. A subplatysmal dissection was carried out and avascular plane of dissection was developed medially in sternocleidomastoid muscles and was followed medially to the carotid sheath to the anterior border of the cervical spine. Deep cervical fascia was opened and the esophagus was retracted to the left. The attachments of longus colli muscles to the anterolateral aspects of vertebral bodies of the C6 and C7 were divided. Anterior longitudinal ligament was resected. The large anterior osteophyte was resected. [place] posts were inserted into C6 and C7. The [place] distractor was used to distract disk space. The anterior anulus of the disk was incised with a #11 blade. The degenerated contents of the C6-7 disks were evacuated with angled curettes and pituitary rongeurs. The posterior osteophytes were meticulously drilled with a 2 mm cutting bur on a high-speed drill and operating microscope. Once they were completely removed, the medial aspects of the uncinate processes were resected bilaterally. The posterior annulus of the disk, chronically herniated disk material, and the posterior longitudinal ligament were resected layer by layer until the dura and origin of the exiting C7 nerve roots were fully exposed and decompressed. Meticulous hemostasis was secured. The disk space was sized and found to be 8 mm in height. A piece of MTF corticocancellous allograft measuring 8 mm was selected and loaded onto a Synthes ZPN plate. The construct was inserted into the C6-7 disk space under distraction and fluoroscopic guidance. The distraction was released and distraction posts were removed. The plate was screwed to the endplates of C6 and C7 with two pairs of 14 mm screws. All screws were locked and excellent construct was obtained. The wound was copiously irrigated with bacitracin solution. Meticulous hemostasis was secured. The traction was removed. The platysma was closed with 3-0 Vicryl sutures. The skin was closed with 4-0 Monocryl sutures in subcuticular fashion. Steri-Strips and a dressing were applied. The patient was awakened, extubated, and taken to the postanesthesia care unit in stable condition. No intraoperative complications were encountered. Estimated blood loss was 10 mL. Alfred Garcia MD PP/BRADY /[id number]
[2018-07-19 17:04] VITALS: BP 181/84
[2018-07-19] MEDS: POTASSIUM CHLORIDE 10MEQ EA PO SCH (17:09)
[2018-07-19] MEDS ORDERED: MIDAZOLAM HCL 2 MG/2 ML VIAL ONE (18:12)
[2018-07-19] MEDS ORDERED: FENTANYL CITRATE/PF 100MCG/2 ML INJ ONE (18:12)
[2018-07-19] MEDS ORDERED: SEVOFLURANE INHAL SOLN 250 ML PEN BTL ONE (18:15)
[2018-07-19] MEDS ORDERED: LIDOCAINE HCL 2% LOCAL INJ 5 ML SDV VIAL INJ ONE (18:15)
[2018-07-19] MEDS ORDERED: IBUPROFEN 800 MG/250 ML BAG IV ONE (18:15)
[2018-07-19] MEDS ORDERED: ROCURONIUM BROMIDE 10 MG/ML 5ML VIAL ONE (18:15)
[2018-07-19] MEDS ORDERED: ONDANSETRON HCL INJ 2MG/ML 2ML 2 MG/ML VIAL ONE (18:15)
[2018-07-19] MEDS ORDERED: PROPOFOL IV EMULSION 10 MG/ML 20 ML VIAL ONE (18:15)
[2018-07-19] MEDS ORDERED: DEXAMETHASONE SOD PHOS INJ 4 MG/ML VIAL ONE (18:15)
[2018-07-19 20:00] VITALS: BP 162/74
[2018-07-19] MEDS ORDERED: ZOLPIDEM TARTRATE 5 MG TAB PO PRN (21:00)
[2018-07-20] VITALS: BP 140/67
[2018-07-20 04:00] VITALS: BP 132/65
[2018-07-20] MEDS: LACTATED RINGER'S 1,000 ML IV SCH (04:15)
[2018-07-20] MEDS ORDERED: LEVOTHYROXINE SODIUM 50 MCG TAB PO SCH (06:00)
[2018-07-20] MEDS: CEFAZOLIN SOD 1 GM/NS 50ML 50 ML IV SCH (06:17)
--- NOTE | 2018-07-20 07:28 | Diagnostic Imaging Report ---
ADDENDUM #1 ADDENDUM: The prior report had a dictation error stating that there was cervical fixation. This is addended to state that there was anterior cervical fusion. The corrected report is as follows. EXAM: Cervical spine radiographs-2 views INDICATION: Status post cervical fusion. COMPARISON: None FINDINGS: C1 through C7 are visualized on the lateral view. There are postsurgical changes status post anterior fusion of C6-C7 with plate and bilateral screw construct. There is an intervertebral spacer at C6-C7. Multiple soft tissue clips. There is soft tissue air, consistent with recent surgery. There is exaggeration of the cervical lordosis centered at C6-C7. No evidence of acute fracture. There are mild degenerative disc and facet degenerative changes. IMPRESSION: Postsurgical findings status post C6-C7 anterior cervical fusion. Signed by: Dr. Jade Coker MD on 07/20/2018 7:42 AM ORIGINAL REPORT EXAM: Cervical spine radiographs-2 views INDICATION: Status post cervical fixation. COMPARISON: None FINDINGS: C1 through C7 are visualized on the lateral view. There are postsurgical changes status post anterior fusion of C6-C7 with plate and bilateral screw construct. There is an intervertebral spacer at C6-C7. Multiple soft tissue clips. There is soft tissue air, consistent with recent surgery. There is exaggeration of the cervical lordosis centered at C6-C7. No evidence of acute fracture. There are mild degenerative disc and facet degenerative changes. IMPRESSION: Postsurgical findings status post C6-C7 anterior cervical fixation. Signed by: Dr. Jade Coker MD on 07/20/2018 7:25 AM
--- NOTE | 2018-07-20 07:38 | NUR ---
report given and walking rounds complete
[2018-07-20 08:55] VITALS: BP 138/65
[2018-07-20] MEDS ORDERED: HYDROCHLOROTHIAZIDE 25 MG TAB PO SCH (09:00)
[2018-07-20] MEDS ORDERED: CALCIUM CARBONATE 500 MG CHEWABLE TABS PO SCH (09:00)
[2018-07-20] MEDS ORDERED: ALLOPURINOL 300 MG TAB PO SCH (09:00)
[2018-07-20] MEDS ORDERED: PANTOPRAZOLE SOD 40 MG TABEC PO SCH ×2 (09:00)
[2018-07-20] MEDS: POTASSIUM CHLORIDE 10MEQ EA PO SCH (09:00)
[2018-07-20] MEDS: HOME MEDICATION--PATIENTS OWN PO SCH (09:37)
[2018-07-20 09:56] VITALS: BP 138/65
[2018-07-20] MEDS ORDERED: NORCO 7.5-3251 EACH PO (10:04)
== END 2018-07-20 10:37 | disposition home or self-care (01) ==
LOC: OR 07:51 → PACU V 11:37 → IMCU 12:30
PROVIDERS: ADMIT Neurological Surgery; ATTEND Neurological Surgery
DX: M50.123 Cervical disc disorder at C6-C7 level with radiculopathy (principal); M19.90 Unspecified osteoarthritis, unspecified site; E78.5 Hyperlipidemia, unspecified; M10.9 Gout, unspecified; I12.9 Hypertensive chronic kidney disease with stage 1 through stage 4 chronic kidney disease, or unspecified chronic kidney disease; N18.3 Chronic kidney disease, stage 3 (moderate)
CPT/HCPCS: 20930; 22551; 22845; 36415; 71046; 72040; 77003; 80048; 85025; 85610; 85730; 86850; 86900; 88304; 93005; G0378 ×2; J0131; J0690 ×3; J1100; J2001; J2250; J2270; J2405; J2704; J7121; S0164

== ENCOUNTER → 2018-08-16 | Outpatient (CLI) | payer MEDICARE, OTHER ==
[~2018-08-16] MED LIST changes: -ACETAMINOPHEN 1000 MG/100 ML 100 ML IV ONE; -LIDOCAINE HCL (LTA) 4 ML SOLN ONE; +NORCO 7.5-3251 EACH PO
--- NOTE | 2018-08-16 09:07 | Diagnostic Imaging Report ---
EXAM: Cervical spine radiographs-4 views INDICATION: Cervical disc herniation. COMPARISON: Cervical spine radiographs 07/20/2018. FINDINGS: C1 through C7 are visualized on the lateral view. There are postsurgical changes status post anterior fusion of C6-C7 with plate and bilateral screw construct. There is an intervertebral spacer at C6-C7. Multiple soft tissue clips. There is exaggeration of the cervical lordosis centered at C6-C7. No change in alignment on flexion and extension views. No evidence of acute fracture. There are mild degenerative disc and facet degenerative changes. IMPRESSION: Status post C6-C7 anterior cervical fusion with intact hardware and unchanged alignment on flexion and extension views. Signed by: Dr. Jade Coker MD on 08/16/2018 9:04 AM
== END ==
LOC: RAD 08:09
PROVIDERS: ATTEND Neurological Surgery
DX: M50.20 Other cervical disc displacement, unspecified cervical region (principal); Z98.1 Arthrodesis status
CPT/HCPCS: 72050

== ENCOUNTER → 2019-03-01 | Outpatient (CLI) | payer OTHER, MEDICARE ==
--- NOTE | 2019-03-01 12:16 | Diagnostic Imaging Report ---
EXAM: Cervical spine radiographs-4 views INDICATION: Cervical disc herniation. COMPARISON: Multiple prior cervical spine radiographs, most recently of 08/16/2018 FINDINGS: C1 through C7 are visualized on the lateral view. Again seen are postsurgical changes status post anterior cervical discectomy and fusion of C6-C7. There is an intervertebral spacer at C6-C7. Multiple soft tissue clips. There is exaggeration of the cervical lordosis centered at C6-C7. No change in alignment on flexion and extension views. No evidence of acute fracture. There are mild degenerative disc and facet degenerative changes. Prevertebral soft tissues are normal in thickness. IMPRESSION: Unchanged alignment status post anterior cervical discectomy and fusion at C6-7. Signed by: Gonzalo Dalal MD on 03/01/2019 12:13 PM
== END ==
LOC: RAD 11:24
PROVIDERS: ATTEND Neurological Surgery
DX: M50.20 Other cervical disc displacement, unspecified cervical region (principal)
CPT/HCPCS: 72050